=== PATIENT | female | born 1990 | race Caucasian/White ===

== ENCOUNTER 2018-09-10 11:17 | Inpatient (IN) | payer OTHER ==
[~2018-09-10] VITALS: Ht 162.6 cm; Wt 90.5 kg
[2018-09-10 11:45] VITALS: BP 123/74
[2018-09-10] MEDS ORDERED: PREN-3 PO (12:02)
[2018-09-10] MEDS ORDERED: FENTANYL PF 100 MCG/2ML IV PRN (13:30)
[2018-09-10] MEDS ORDERED: OXYTOCIN 30U/ 0.9% NaCL 500ML 500 ML IV ONE (13:30)
[2018-09-10] MEDS ORDERED: CALCIUM CARBONATE 500 MG TAB.CHEW PO PRN (13:30)
[2018-09-10] MEDS ORDERED: ONDANSETRON 2MG/ML, 2ML IVPush PRN (13:30)
[2018-09-10] MEDS ORDERED: FENTANYL PF 100 MCG/2ML ONE ×3 (13:57→16:57)
[2018-09-10] MEDS: FENTANYL PF 100 MCG/2ML IVPush PRN ×3 (14:01→16:59)
[2018-09-10 14:20] LABS: MEAN CORPUSCULAR HEMOGLOBIN 30.1 pg (27.0-34.8); MEAN CORPUSCULAR HGB CONC 33.5 g/dL (32.4-35.8); MEAN CORPUSCULAR VOLUME 89.7 fL (80-100); MEAN PLATELET VOLUME 8.4 fL (7.4-10.4); PLATELET COUNT 295 x10^3/uL (130-400); RED CELL DISTRIBUTION WIDTH 14.6 % (9.6-15.2)
[2018-09-10 14:47] LABS: BASOPHILS # (AUTO) 0.01 x10^3/uL (0-0.1); BASOPHILS % (AUTO) 0 % (0-1); EOSINOPHILS # (AUTO) 0.03 x10^3/uL (0-0.4); EOSINOPHILS % (AUTO) 0 % (1-7); LYMPHOCYTES # (AUTO) 1.21 x10^3/uL (1-3.4); LYMPHOCYTES % (AUTO) 8 % (22-44); MD SCAN; MONOCYTES # (AUTO) 0.68 x10^3/uL (0.2-0.8); MONOCYTES % (AUTO) 4 % (2-9); NEUTROPHILS # (AUTO) 13.87 x10^3/uL (1.8-6.8); NEUTROPHILS % (AUTO) 88 % (42-75)
[2018-09-10] MEDS: LACTATED RINGERS 1,000 ML IV SCH ×3 (15:44→18:09)
[2018-09-10] MEDS ORDERED: FENTANYL/BUPIV./NS/PF 250 ML EPIDCONT SCH ×2 (16:28→18:21)
[2018-09-10] MEDS ORDERED: OXYTOCIN 30U/ 0.9% NaCL 500ML 500 ML ONE (16:34)
[2018-09-10] MEDS ORDERED: FENTANYL PF 500 MCG, BUPIVACAINE/PF 0.5%, 30ML 62.5 ML in SODIUM CHLORIDE 0.9% 177.5 ML EPIDCONT SCH (17:00)
[2018-09-10] MEDS ORDERED: LIDOCAINE/PF 1.5%-EPI 1:200K, 30ML ONE (17:51)
[2018-09-10] MEDS ORDERED: LACTATED RINGERS 1,000 ML IV SCH (18:21)
[2018-09-10] MEDS ORDERED: LACTATED RINGERS 1,000 ML IVBOLUS PRN (18:30)
[2018-09-10] MEDS ORDERED: NALOXONE 0.4 MG/ML, 1ML IVPush PRN (18:30)
[2018-09-10] MEDS ORDERED: EPHEDRINE 50 MG/ML, 1ML IVPush PRN (18:30)
[2018-09-11] MEDS ORDERED: METHYLERGONOVINE 0.2 MG/ML IM PRN (00:30)
[2018-09-11] MEDS ORDERED: CALCIUM CARBONATE 500 MG TAB.CHEW PO PRN (00:30)
[2018-09-11] MEDS ORDERED: MAGNESIUM HYDROXIDE 8%, 30ML UDC PO PRN (00:30)
[2018-09-11] MEDS ORDERED: ONDANSETRON 2MG/ML, 2ML IV PRN (00:30)
[2018-09-11] MEDS ORDERED: ACETAMINOPHEN 325 MG TABLET PO PRN ×2 (00:30)
[2018-09-11] MEDS ORDERED: OXYTOCIN 10 UNITS/ML, 1ML IM PRN (00:30)
[2018-09-11] MEDS ORDERED: IBUPROFEN 600 MG TABLET ONE (00:33)
[2018-09-11] MEDS ORDERED: OXYTOCIN 30U/ 0.9% NaCL 500ML 500 ML ONE (00:33)
[2018-09-11] MEDS ORDERED: IBUPROFEN 800 MG TABLET ONE (00:36)
[2018-09-11] MEDS: IBUPROFEN 800 MG TABLET PO PRN ×3 (00:37→17:00)
[2018-09-11] MEDS ORDERED: NEWBORN KIT ONE (00:45)
[2018-09-11] MEDS ORDERED: OXYcodone/APAP 5/325MG TABLET ONE (01:22)
[2018-09-11] MEDS: OXYTOCIN 30U/ 0.9% NaCL 500ML 500 ML IV SCH ×2 (01:23→10:10)
[2018-09-11] MEDS: OXYcodone/APAP 5/325MG TABLET PO PRN ×5 (01:24→21:21)
[2018-09-11 02:45] VITALS: BP 116/75
[2018-09-11] MEDS ORDERED: LACTATED RINGERS 1,000 ML IV SCH (05:00)
[2018-09-11 08:13] LABS: MEAN CORPUSCULAR HEMOGLOBIN 30.1 pg (27.0-34.8); MEAN CORPUSCULAR HGB CONC 33.6 g/dL (32.4-35.8); MEAN CORPUSCULAR VOLUME 89.5 fL (80-100); PLATELET COUNT 240 x10^3/uL (130-400); RED CELL DISTRIBUTION WIDTH 14.3 % (9.6-15.2)
[2018-09-11 08:58] LABS: MD YES
[2018-09-11] MEDS: PRENATAL VIT/IRON/FA 1 EACH TABLET PO SCH (09:00)
[2018-09-11 09:01] LABS: BAND#(MANUAL) 1.66 x10^3/uL; BANDS%(MANUAL) 9 % (0-7); EOS#(MANUAL) 0.18 x10^3/uL (0.0-0.4); EOS% (MANUAL) 1 % (1-7); LYMPH#(MANUAL) 1.47 x10^3/uL (1-3.4); LYMPHS% (MANUAL) 8 % (22-44); METAMYELOCYTES# (MANUAL) 0.18 x10^3/uL (0-0); METAMYELOCYTES% (MANUAL) 1 % (0-1)
[2018-09-11 09:03] LABS: <RBC MORPHOLOGY> NORMAL; MONOS#(MANUAL) 0.37 x10^3/uL (0.3-2.7); MONOS% (MANUAL) 2 % (2-9); SEG#(MANUAL) 14.54 x10^3/uL (1.8-6.8); SEGS% (MANUAL) 79 % (42-75)
[2018-09-11 09:04] LABS: <PLATELET ESTIMATE> ADEQUATE; LARGE PLATELETS 1+
[2018-09-11] MEDS ORDERED: DOCUSATE 100 MG CAPSULE ONE ×2 (09:23→19:22)
[2018-09-11 09:30] VITALS: BP 116/73
[2018-09-11] MEDS: DOCUSATE 50 MG/5 ML, 10ML UDC PO PRN ×2 (09:30→19:31)
[2018-09-11 12:00] VITALS: BP 119/77
[2018-09-11 16:20] VITALS: BP 112/78
[2018-09-11] MEDS ORDERED: BUPIVACAINE 0.25% ONE (17:54)
[2018-09-11 18:50] VITALS: BP 114/75
[2018-09-12] VITALS: BP 124/86
[2018-09-12] MEDS: OXYcodone/APAP 5/325MG TABLET PO PRN ×5 (01:38→22:43)
[2018-09-12] MEDS: IBUPROFEN 800 MG TABLET PO PRN ×3 (01:38→17:44)
[2018-09-12] MEDS ORDERED: DOCUSATE 100 MG CAPSULE ONE ×3 (07:18→22:41)
[2018-09-12 07:50] VITALS: BP 121/82
[2018-09-12] MEDS: PRENATAL VIT/IRON/FA 1 EACH TABLET PO SCH (09:00)
[2018-09-12 20:00] VITALS: BP 110/77
[2018-09-12] MEDS: DOCUSATE 50 MG/5 ML, 10ML UDC PO PRN (22:44)
[2018-09-13] MEDS: IBUPROFEN 800 MG TABLET PO PRN (06:31)
[2018-09-13] MEDS: OXYcodone/APAP 5/325MG TABLET PO PRN ×2 (06:32→10:56)
[2018-09-13 08:15] VITALS: BP 117/78
[2018-09-13] MEDS: PRENATAL VIT/IRON/FA 1 EACH TABLET PO SCH (09:00)
[2018-09-13] MEDS ORDERED: IBUP-1222 PO (11:47)
[2018-09-13] MEDS ORDERED: OXYC-302 PO (11:48)
== END 2018-09-13 13:24 | disposition home or self-care (01) | DRG 807 ==
LOC: LDOP 11:17 → LDIP 13:30 → 2NW 09-11 02:10 → EDSTATUS 09-16 11:17
PROVIDERS: ADMIT Obstetrics & Gynecology; ATTEND Obstetrics & Gynecology
PROC: 10E0XZZ Delivery of Products of Conception, External Approach (ICD-10-PCS; principal; 2018-09-10)
PROC: 3E0R3BZ Introduction of Anesthetic Agent into Spinal Canal, Percutaneous Approach (ICD-10-PCS; 2018-09-10)
PROC: 00HU33Z Insertion of Infusion Device into Spinal Canal, Percutaneous Approach (ICD-10-PCS; 2018-09-10)
PROC: 10907ZC Drainage of Amniotic Fluid, Therapeutic from Products of Conception, Via Natural or Artificial Opening (ICD-10-PCS; 2018-09-10)
DX: O80 Encounter for full-term uncomplicated delivery (principal); Z37.0 Single live birth; Z3A.39 39 weeks gestation of pregnancy
CPT/HCPCS: 36415; S0020; 85025; 86850; 86900; G0378; J3010; J3490; J2590; J7050; J7120

== ENCOUNTER 2020-08-25 10:17 | Inpatient (IN) | payer OTHER ==
[~2020-08-25] VITALS: Ht 162.6 cm; Wt 96.8 kg
[~2020-08-25 10:17] MED LIST: IBUP-1222 PO; OXYC1TAB14 PO; PREN-3 PO
[2020-08-25 10:31] VITALS: BP 131/84
[2020-08-25] MEDS ORDERED: OXYTOCIN 30U/ 0.9% NaCL 500ML 500 ML ONE (10:51)
[2020-08-25] MEDS ORDERED: MISOPROSTOL 200 MCG TABLET ONE (10:52)
[2020-08-25] MEDS ORDERED: LIDOCAINE 1%, 20ML ONE (10:52)
[2020-08-25] MEDS ORDERED: TERBUTALINE 1 MG/ML, 1ML SQ PRN (11:00)
[2020-08-25] MEDS ORDERED: OXYTOCIN 30U/ 0.9% NaCL 500ML 500 ML IV ONE (11:00)
[2020-08-25] MEDS ORDERED: FENTANYL PF 100 MCG/2ML IV PRN (11:00)
[2020-08-25] MEDS ORDERED: FENTANYL PF 100 MCG/2ML IVPush PRN (11:00)
[2020-08-25] MEDS ORDERED: TERBUTALINE 1 MG/ML, 1ML IVPush PRN (11:00)
[2020-08-25] MEDS: LACTATED RINGERS 1,000 ML IVBOLUS PRN ×2 (11:15→13:25)
[2020-08-25] MEDS: LACTATED RINGERS 1,000 ML IV SCH ×3 (11:22→18:01)
[2020-08-25 11:26] LABS: BASOPHILS % (AUTO) 1 % (0-1); EOSINOPHILS % (AUTO) 0 % (1-7); LYMPHOCYTES % (AUTO) 7 % (22-44); MEAN CORPUSCULAR HEMOGLOBIN 28.4 pg (27.0-34.8); MEAN CORPUSCULAR HGB CONC 33.1 g/dL (32.4-35.8); MEAN PLATELET VOLUME 8.1 fL (7.4-10.4); MONOCYTES % (AUTO) 3 % (2-9); NEUTROPHILS % (AUTO) 88 % (42-75); PLATELET COUNT 267 x10^3/uL (130-400); RED BLOOD COUNT 4.58 x10^6/uL (3.82-5.3); RED CELL DISTRIBUTION WIDTH 15.3 % (9.6-15.2)
[2020-08-25 12:00] LABS: MD SCAN
[2020-08-25] MEDS ORDERED: BUPIVACAINE 0.25% ONE (12:26)
[2020-08-25] MEDS ORDERED: FENTANYL/BUPIV./NS/PF 250 ML EPIDCONT ONE (12:26)
[2020-08-25] MEDS ORDERED: NEWBORN KIT ONE (12:41)
[2020-08-25] MEDS ORDERED: LACTATED RINGERS 1,000 ML IV SCH (13:30)
[2020-08-25] MEDS ORDERED: DIPHENHYDRAMINE 50 MG/ML, 1ML IVPush PRN (13:30)
[2020-08-25] MEDS ORDERED: EPHEDRINE 50 MG/ML, 1ML IVPush PRN (13:30)
[2020-08-25] MEDS ORDERED: NALOXONE 0.4 MG/ML, 1ML IVPush PRN (13:30)
[2020-08-25] MEDS ORDERED: FENTANYL/BUPIV./NS/PF 250 ML EPIDCONT SCH (13:30)
[2020-08-25] MEDS ORDERED: ONDANSETRON 2MG/ML, 2ML IVPush PRN (13:30)
[2020-08-25] MEDS ORDERED: OXYTOCIN 30U/ 0.9% NaCL 500ML 500 ML IV PRN (16:30)
[2020-08-25] MEDS ORDERED: CARBOPROST TROMETHAMINE 250 MCG/ML, 1ML IM PRN (19:00)
[2020-08-25] MEDS ORDERED: ONDANSETRON 2MG/ML, 2ML IV PRN (19:00)
[2020-08-25] MEDS ORDERED: SIMETHICONE 80 MG CHEW TAB PO PRN (19:00)
[2020-08-25] MEDS ORDERED: IBUPROFEN 800 MG TABLET PO PRN (19:00)
[2020-08-25] MEDS ORDERED: OXYcodone IR 5MG TABLET PO PRN (19:00)
[2020-08-25] MEDS ORDERED: OXYcodone/APAP 5/325MG TABLET PO PRN (19:00)
[2020-08-25] MEDS ORDERED: CALCIUM CARBONATE 500 MG TAB.CHEW PO PRN (19:00)
[2020-08-25] MEDS ORDERED: DOCUSATE 100 MG CAPSULE PO PRN (19:00)
[2020-08-25] MEDS ORDERED: ACETAMINOPHEN 325 MG TABLET PO PRN (19:00)
[2020-08-25] MEDS ORDERED: MAGNESIUM HYDROXIDE 8%, 30ML UDC PO PRN (19:00)
[2020-08-25] MEDS ORDERED: TRANEXAMIC ACID 100 MG/ML, 10ML IV ONE (19:00)
[2020-08-25] MEDS ORDERED: OXYTOCIN 10 UNITS/ML, 1ML IM PRN (19:00)
[2020-08-25] MEDS ORDERED: METHYLERGONOVINE 0.2 MG/ML IM PRN (19:00)
[2020-08-25] MEDS ORDERED: IBUPROFEN 600 MG TABLET ONE (20:29)
[2020-08-25] MEDS: OXYTOCIN 30U/ 0.9% NaCL 500ML 500 ML IV SCH (20:31)
[2020-08-25 21:35] VITALS: BP 115/74
[2020-08-26 00:17] VITALS: BP 109/67
[2020-08-26] MEDS: IBUPROFEN 600 MG TABLET PO PRN ×3 (02:33→15:06)
[2020-08-26 03:30] LABS: BASOPHILS % (AUTO) 0 % (0-1); EOSINOPHILS % (AUTO) 0 % (1-7); LYMPHOCYTES % (AUTO) 15 % (22-44); MEAN CORPUSCULAR HEMOGLOBIN 28.5 pg (27.0-34.8); MEAN PLATELET VOLUME 8.2 fL (7.4-10.4); MONOCYTES % (AUTO) 7 % (2-9); NEUTROPHILS % (AUTO) 77 % (42-75); PLATELET COUNT 231 x10^3/uL (130-400); RED BLOOD COUNT 4.21 x10^6/uL (3.82-5.3); RED CELL DISTRIBUTION WIDTH 15.3 % (9.6-15.2)
[2020-08-26 03:31] LABS: MD NO
[2020-08-26 04:38] VITALS: BP 117/76
[2020-08-26] MEDS: OXYTOCIN 30U/ 0.9% NaCL 500ML 500 ML IV SCH (05:00)
[2020-08-26 07:45] VITALS: BP 109/72
[2020-08-26] MEDS ORDERED: PRENATAL VIT/IRON/FA 1 EACH TABLET PO SCH (09:00)
[2020-08-26 12:00] VITALS: BP 130/79
== END 2020-08-26 19:21 | disposition home or self-care (01) | DRG 807 ==
LOC: LDOP 10:17 → LDIP 10:58 → 2NW 21:22
PROVIDERS: ADMIT Obstetrics & Gynecology; ATTEND Obstetrics & Gynecology
PROC: 10E0XZZ Delivery of Products of Conception, External Approach (ICD-10-PCS; principal; 2020-08-25)
PROC: 10907ZC Drainage of Amniotic Fluid, Therapeutic from Products of Conception, Via Natural or Artificial Opening (ICD-10-PCS; 2020-08-25)
PROC: 10H07YZ Insertion of Other Device into Products of Conception, Via Natural or Artificial Opening (ICD-10-PCS; 2020-08-25)
PROC: 3E0R3BZ Introduction of Anesthetic Agent into Spinal Canal, Percutaneous Approach (ICD-10-PCS; 2020-08-25)
PROC: 00HU33Z Insertion of Infusion Device into Spinal Canal, Percutaneous Approach (ICD-10-PCS; 2020-08-25)
DX: O80 Encounter for full-term uncomplicated delivery (principal); Z37.0 Single live birth; Z3A.39 39 weeks gestation of pregnancy; Z20.822 Contact with and (suspected) exposure to COVID-19
CPT/HCPCS: 36415; 76815; 85025; 86592; 86850; 86900; 87635; G0378; J3010; J2590; J7120